=== PATIENT | male | born 1930 | race Caucasian/White ===

== ENCOUNTER 2018-02-02 11:09 | Emergency (ER) | payer MEDICARE, OTHER ==
[~2018-02-02] VITALS: Ht 175.3 cm; Wt 70.5 kg
[2018-02-02] MEDS ORDERED: LIDOcaine 1.5% w/epinephrine 1:200,000 5ml ampul IJ ONE (11:35)
[2018-02-02] MEDS ORDERED: HYDROcodone/acetaminophen 10/325mg tab PO ONE (12:55)
[2018-02-02 13:02] VITALS: BP 117/74
== END 2018-02-02 14:19 | disposition home or self-care (01) ==
LOC: ER 11:10
DX: S01.511A Laceration without foreign body of lip, initial encounter (principal); X58.XXXA Exposure to other specified factors, initial encounter; Y93.89 Activity, other specified; Y92.89 Other specified places as the place of occurrence of the external cause; Y99.8 Other external cause status
CPT/HCPCS: 12011; 70450; 99284; A6449; J3490

== ENCOUNTER 2018-02-08 09:22 | Emergency (ER) | payer MEDICARE, OTHER ==
[~2018-02-08] VITALS: Ht 325.1 cm; Wt 82.0 kg
[2018-02-08 11:47] VITALS: BP 118/78
== END 2018-02-08 11:48 | disposition home or self-care (01) ==
LOC: ER 09:22
DX: S01.511D Laceration without foreign body of lip, subsequent encounter (principal); W18.39XD Other fall on same level, subsequent encounter
CPT/HCPCS: 99284